=== PATIENT | male | born 1945 | race Asian ===

== ENCOUNTER 2018-03-21 22:40 | Emergency (ER) | payer MEDICARE, OTHER | END 2018-03-22 00:28 | disposition home or self-care (01) | LOC: FTE 03-22 00:28 | DX: S00.81XA Abrasion of other part of head, initial encounter (principal); T22.111A Burn of first degree of right forearm, initial encounter; I10 Essential (primary) hypertension; E11.9 Type 2 diabetes mellitus without complications; X19.XXXA Contact with other heat and hot substances, initial encounter; Y92.9 Unspecified place or not applicable | CPT/HCPCS: 99284 ==

== ENCOUNTER 2018-05-13 08:32 | Day surgery (SDC) | payer MEDICARE, OTHER ==
[2018-05-13] MEDS: PROPARACAINE 0.5% 15 ML OPH OPER (10:36)
[2018-05-13] MEDS: MOXIFLOXACIN 0.5% 3 ML OPH OPER (10:37)
[2018-05-13] MEDS: PHENYLephrine 2.5% 15 ML OPH OPER (10:37)
[2018-05-13] MEDS: PREDNISOLONE ACET 1% 5 ML OPH OPER (10:37)
[2018-05-13] MEDS: TROPICAMIDE 1% 3 ML OPH OPER (10:37)
[2018-05-13] MEDS: SOD CHLORIDE 0.9% 1,000 ML IV (10:45)
[2018-05-13] MEDS ORDERED: EPINEPHrine 1 MG INJ (12:30)
[2018-05-13] MEDS ORDERED: BUPIVACAINE 0.75% (MPF) 10 ML INJ (12:30)
[2018-05-13] MEDS ORDERED: SODIUM HYALURONATE 14 MG/ML SYG (12:32)
[2018-05-13] MEDS ORDERED: GLYCOPYRROLATE 0.4 MG INJ (12:48)
[2018-05-13] MEDS ORDERED: MIDAZOLAM 1 MG/ML 2 ML INJ (12:48)
[2018-05-13] MEDS ORDERED: FENTAnyl 50 MCG/ML VIAL (12:48)
[2018-05-13] MEDS ORDERED: ROCURONIUM 50 MG INJ (12:48)
[2018-05-13] MEDS ORDERED: LIDOCAINE 2% (SDV) 5 ML INJ (12:48)
[2018-05-13] MEDS ORDERED: NEOSTIGMINE 3 MG/3 ML SYRINGE (12:48)
[2018-05-13] MEDS ORDERED: PROPOFOL 20 ML (12:48)
[2018-05-13] MEDS ORDERED: ONDANSETRON 4 MG INJ (12:49)
[2018-05-13] MEDS ORDERED: LIDOCAINE 1% (MPF) 10 ML INJ (12:53)
[2018-05-13] MEDS: LIDOCAINE 1% (MPF) 5 ML VIAL INJ (13:15)
[2018-05-13] MEDS: SODIUM HYALURONATE 14 MG/ML SYG IO ×2 (13:15→14:21)
[2018-05-13] MEDS: TOBRAMYCIN/DEXAMETH 3.5 GM OPH OINT LEFT EYE (13:57)
[2018-05-13] MEDS ORDERED: HYDROCORTISONE 100 MG INJ (14:06)
[2018-05-13] MEDS ORDERED: CARBACHOL 0.01% 1.5 ML OPH INJ (14:24)
[2018-05-13] MEDS: CARBACHOL 0.01% 1.5 ML OPH INJ LEFT EYE (14:25)
[2018-05-13] MEDS ORDERED: HYDROmorphONE 1 MG/5 ML IV SYRINGE IV ×2 (14:49→15:00)
[2018-05-13] MEDS: HYDROmorphONE 1 MG/5 ML IV SYRINGE IV ×2 (14:58→15:20)
[2018-05-13] MEDS ORDERED: ACETAZOLAMIDE 500 MG INJ IV (15:00)
== END 2018-05-13 16:07 | disposition home or self-care (01) ==
LOC: SDS 08:32
DX: H25.12 Age-related nuclear cataract, left eye (principal); I10 Essential (primary) hypertension; E11.9 Type 2 diabetes mellitus without complications
CPT/HCPCS: 66984; J1120